=== PATIENT | male | born 1995 | race Hispanic/Latino ===

== ENCOUNTER 2021-02-28 14:27 | Emergency (ER) | payer OTHER, SELFPAY ==
[2021-02-28] MEDS ORDERED: Ibuprofen 800 MG TAB ONE (16:29)
[2021-02-28] MEDS ORDERED: Amoxicillin/Potassium Clav 875 MG TAB ONE (16:32)
== END 2021-02-28 16:40 | disposition home or self-care (01) ==
LOC: EDBD 14:27 → NAV ERS 14:27
DX: S02.32XA Fracture of orbital floor, left side, initial encounter for closed fracture (principal); S02.2XXA Fracture of nasal bones, initial encounter for closed fracture; Y04.0XXA Assault by unarmed brawl or fight, initial encounter
CPT/HCPCS: 70450; 70486